=== PATIENT | female | born 1930 | race Caucasian/White ===

== ENCOUNTER → 2017-06-13 | Outpatient (CLI) | payer OTHER ==
[~2017-06-13] VITALS: Ht 162.6 cm; Wt 54.0 kg
[~2017-06-13] MED LIST: CENTRUM SILVER1 EAC4 PO; CORGARD80 MG PO; HYDROCHLOROTHIA50 MG PO
[2017-06-13 12:07] LABS: HEMATOCRIT 33.6 % (36.0-46.0); MCH 29.4 PG (29.0-34.0); MCHC 35.1 G/DL (30.0-36.0); MEAN PLAT.VOLUME 12.3 uM^3 (9.5-12.4); PLATELET COUNT 123 K/uL (156-360); RBC DIS.WIDTH-CV 12.8 % (11.8-14.6); RBC DIS.WIDTH-SD 39.3 % (39-53); RED BLOOD COUNT 4.02 M/uL (3.80-5.20); WHITE BLOOD COUNT 5.2 K/uL (4.1-10.2)
[2017-06-13 12:07] LABS: POINT-OF-CARE METER ID UU14107333
[2017-06-13 12:09] LABS: MCV 83.6 FL (83-99)
[2017-06-13 12:19] LABS: CHLORIDE 99 mEq/L (99-109); SODIUM 137 mEq/L (136-147)
[2017-06-13 12:21] LABS: GLUCOSE 239 mg/dL (70-99)
[2017-06-13 12:22] LABS: ANION GAP 12 MEQ/L (2-14)
[2017-06-13 12:25] LABS: GFR ESTIMATE (CALCULATED) 45 mL/min/
[2017-06-13 12:26] LABS: UREA NITROGEN (BUN) 34 mg/dL (9-23)
[2017-06-13 12:32] LABS: POTASSIUM 2.3 mEq/L (3.7-5.4)
[2017-06-13 13:52] LABS: ANION GAP 13 MEQ/L (2-14); CHLORIDE 100 MEQ/L (99-109); GFR ESTIMATE (CALCULATED) > 59 mL/min/; GLUCOSE 219 mg/dL (70-99); SAMPLE HEMOLYSIS CHECK 0; SAMPLE ICTERIC CHECK 0; SAMPLE LIPEMIA CHECK 0; SODIUM 138 MEQ/L (136-147); UREA NITROGEN (BUN) 29 mg/dL (9-23)
[2017-06-13 13:56] LABS: POTASSIUM 2.1 MEQ/L (3.7-5.4)
== END | disposition home or self-care (01) ==
LOC: AMB 11:14 → OPR 11:30 → AMB 11:30
PROVIDERS: Anesthesiology; Internal Medicine Gastroenterology
PROC: 0DJ0XZZ Inspection of Upper Intestinal Tract, External Approach (ICD-10-PCS; principal; 2017-06-13)
DX: K86.9 Disease of pancreas, unspecified (principal); Z53.09 Procedure and treatment not carried out because of other contraindication; E87.6 Hypokalemia; R94.31 Abnormal electrocardiogram [ECG] [EKG]
CPT/HCPCS: 80048; 80048 91; 82948; 85027; 93005; J0330; J1100; J2405; J3010; J3480

== ENCOUNTER → 2017-06-14 | Outpatient (CLI) | payer OTHER ==
[2017-06-14 13:44] LABS: ANION GAP 9 MEQ/L (2-14); CHLORIDE 99 MEQ/L (99-109); POTASSIUM 3.4 MEQ/L (3.7-5.4); SAMPLE HEMOLYSIS CHECK 0; SAMPLE ICTERIC CHECK 0; SAMPLE LIPEMIA CHECK 0; SODIUM 136 MEQ/L (136-147)
[2017-06-14 13:50] LABS: GFR ESTIMATE (CALCULATED) 50 mL/min/; GLUCOSE 240 mg/dL (70-99); UREA NITROGEN (BUN) 33 mg/dL (9-23)
== END | disposition home or self-care (01) ==
LOC: AMB 12:55
PROVIDERS: Anesthesiology
DX: C25.9 Malignant neoplasm of pancreas, unspecified (principal); K83.1 Obstruction of bile duct; Z85.72 Personal history of non-Hodgkin lymphomas; I10 Essential (primary) hypertension; E11.9 Type 2 diabetes mellitus without complications; Z79.84 Long term (current) use of oral hypoglycemic drugs
CPT/HCPCS: 74328; 80048; 87081; 88173; 88305; C1769; J0330; J1100; J2405; J3010

== ENCOUNTER → 2017-06-22 | Outpatient (CLI) | payer OTHER ==
[~2017-06-22] VITALS: Ht 162.6 cm; Wt 51.3 kg
[~2017-06-22] MED LIST changes: +PROBIOTIC1 EAC1 PO
[2017-06-22 08:37] LABS: INTER. NORMALIZED RATIO 1.1; PROTHROMBIN TIME 12.6 SEC (10.2-12.9)
[2017-06-22 08:39] LABS: POINT-OF-CARE METER ID UU13113694
[2017-06-22 08:40] LABS: PTT 32.1 SEC (25-37)
== END | disposition home or self-care (01) ==
LOC: OPR 08:06
PROVIDERS: Internal Medicine Gastroenterology
PROC: 0F9930Z Drainage of Common Bile Duct with Drainage Device, Percutaneous Approach (ICD-10-PCS; principal; 2017-06-22)
DX: K86.9 Disease of pancreas, unspecified (principal); Z85.72 Personal history of non-Hodgkin lymphomas; E11.9 Type 2 diabetes mellitus without complications
CPT/HCPCS: 47534; 82948; 85610; 85730; C1729; C1769; J1956; J2250; J2310; J2405; J3010

== ENCOUNTER 2017-06-24 20:01 | Emergency (ER) | payer OTHER ==
[~2017-06-24] VITALS: Ht 162.6 cm; Wt 51.3 kg
[2017-06-24 21:39] LABS: EOSINOPHIL (%) 1.2 % (0-5); EOSINOPHIL COUNT 0.1 K/uL (0-0.3); HEMATOCRIT 32.1 % (36.0-46.0); IMMATURE GRANULOCYTE (%) 0.2 % (0.0-0.7); INSTRUMENT ABS NEUTROPHIL CT 3.1 K/uL; LYMPHOCYTE COUNT 1.2 K/uL (1.0-2.8); MCH 29.1 PG (29.0-34.0); MCHC 34.3 G/DL (30.0-36.0); MCV 84.9 FL (83-99); MEAN PLAT.VOLUME 11.7 uM^3 (9.5-12.4); MONOCYTE (%) 11.4 % (3-12); MONOCYTE COUNT 0.6 K/uL (0-0.8); NEUTROPHIL (%) 63.1 % (45-76); NEUTROPHIL COUNT 3.1 K/uL (1.8-6.4); PLATELET COUNT 97 K/uL (156-360); RBC DIS.WIDTH-CV 12.8 % (11.8-14.6); RBC DIS.WIDTH-SD 39.6 % (39-53); RED BLOOD COUNT 3.78 M/uL (3.80-5.20)
[2017-06-24 22:33] VITALS: BP 120/54
== END 2017-06-24 22:35 | disposition home or self-care (01) ==
LOC: EME 20:01
PROVIDERS: Physician Assistant
DX: L76.22 Postprocedural hemorrhage of skin and subcutaneous tissue following other procedure (principal); Z98.890 Other specified postprocedural states; K86.9 Disease of pancreas, unspecified
CPT/HCPCS: 85025; 99281; 99284

== ENCOUNTER → 2017-06-27 | Outpatient (CLI) | payer OTHER ==
[~2017-06-27] VITALS: Ht 162.6 cm; Wt 54.0 kg
[2017-06-27 08:48] LABS: EOSINOPHIL (%) 1.8 % (0-5); EOSINOPHIL COUNT 0.1 K/uL (0-0.3); HEMATOCRIT 34.7 % (36.0-46.0); IMMATURE GRANULOCYTE (%) 0.2 % (0.0-0.7); INSTRUMENT ABS NEUTROPHIL CT 4.6 K/uL; LYMPHOCYTE COUNT 1.2 K/uL (1.0-2.8); MCH 29.7 PG (29.0-34.0); MCHC 34.9 G/DL (30.0-36.0); MEAN PLAT.VOLUME 12.4 uM^3 (9.5-12.4); MONOCYTE (%) 9.2 % (3-12); MONOCYTE COUNT 0.6 K/uL (0-0.8); NEUTROPHIL (%) 70.5 % (45-76); NEUTROPHIL COUNT 4.6 K/uL (1.8-6.4); PLATELET COUNT 114 K/uL (156-360); RBC DIS.WIDTH-CV 12.7 % (11.8-14.6); RBC DIS.WIDTH-SD 39.5 % (39-53); RED BLOOD COUNT 4.08 M/uL (3.80-5.20); WHITE BLOOD COUNT 6.5 K/uL (4.1-10.2)
[2017-06-27 08:51] LABS: POINT-OF-CARE METER ID UU14107333
[2017-06-27 09:11] LABS: ANION GAP 8 MEQ/L (2-14); CHLORIDE 96 MEQ/L (99-109); POTASSIUM 3.1 MEQ/L (3.7-5.4); SAMPLE HEMOLYSIS CHECK 0; SAMPLE ICTERIC CHECK 0; SAMPLE LIPEMIA CHECK 0; SODIUM 133 MEQ/L (136-147)
[2017-06-27 09:17] LABS: GFR ESTIMATE (CALCULATED) > 59 mL/min/; GLUCOSE 273 mg/dL (70-99); UREA NITROGEN (BUN) 22 mg/dL (9-23)
[2017-06-27 11:43] LABS: POINT-OF-CARE METER ID UU13113819
== END | disposition home or self-care (01) ==
LOC: AMB 07:42
PROVIDERS: Internal Medicine Gastroenterology
DX: C25.0 Malignant neoplasm of head of pancreas (principal); K83.1 Obstruction of bile duct; C85.90 Non-Hodgkin lymphoma, unspecified, unspecified site; E11.9 Type 2 diabetes mellitus without complications; I10 Essential (primary) hypertension
CPT/HCPCS: 74328; 80048; 82948; 85025; 87081; C1769; J0330; J1100; J2405; J3010

== ENCOUNTER 2018-07-05 06:44 | Day surgery (SDC) | payer OTHER ==
[~2018-07-05] VITALS: Ht 162.6 cm; Wt 57.0 kg
[~2018-07-05 06:44] MED LIST changes: +CREON PO; +IMODIUM A-D2 M2 PO
== END 2018-07-05 09:55 | disposition home or self-care (01) ==
LOC: CATH 06:44
DX: I87.8 Other specified disorders of veins (principal); C18.9 Malignant neoplasm of colon, unspecified
CPT/HCPCS: C1788; C1894; J0690; J1644; J2250; J3010; S0020